=== PATIENT | female | born 1935 | race Caucasian/White ===

== ENCOUNTER 2017-09-23 11:48 | Outpatient (CLI) | payer MEDICARE, OTHER ==
--- NOTE | 2017-09-24 13:49 | Mammography Report ---
DATE OF SERVICE: 09/23/2017 DIGITAL BILATERAL SCREENING MAMMOGRAM: 09/23/2017 COMPARISON: Mammogram 12/04/2015. INDICATION: Screening mammography. TECHNIQUE: Bilateral MLO and CC breast views. FINDINGS: The breast parenchyma is extremely dense, which may limit the sensitivity of mammography. There is a scar marker over the right breast. There are bilateral scattered benign appearing calcifications. No dominant mass, architectural distortion, or concerning cluster of microcalcifications are seen. IMPRESSION: BIRADS CATEGORY 2-BENIGN FINDINGS. RECOMMENDATION: ANNUAL SCREENING MAMMOGRAM. STANDARD QUALIFYING STATEMENTS: 1. This examination was reviewed with the aid of Computer-Aided Detection (CAD) . 2. A negative or benign imaging report should not delay biopsy if clinically suspicious findings are present. Consider surgical consultation if warranted. More than 5% of cancers are not identified by imaging. 3. Dense breasts may obscure an underlying neoplasm. TD: 09/24/2017 14:48 BERNARDO
== END 2017-09-23 11:49 | disposition home or self-care (01) ==
LOC: DI.S 11:48
PROVIDERS: ATTEND Family Medicine
DX: Z12.31 Encounter for screening mammogram for malignant neoplasm of breast (principal)
CPT/HCPCS: 77067

== ENCOUNTER 2017-11-22 10:23 | Outpatient (CLI) | payer MEDICARE, OTHER ==
--- NOTE | 2017-11-22 16:33 | DEXA Report ---
DEXA SCAN: 11/22/2017 CLINICAL INDICATION: Postmenopausal. TECHNIQUE: Dual energy x-ray absorptiometry (DXA) was performed on a [employer] system. Regions measured are the AP spine, femoral neck, and, if needed, forearm. COMPARISON: None. In accordance with the International Society for Clinical Densitometry (ISCD) guidelines, data from previous exams may be reanalyzed using current recommendations and techniques. This is done to allow a more accurate basis for comparison with the current study. FINDINGS The data for the lumbar spine is as follows: REGION BMD (g/cm/cm) T-SCORE Z-SCORE L1 1.185 0.5 2.3 L2 1.031 -1.4 0.5 L3 1.007 -1.6 0.3 L4 1.168 -0.3 1.6 TOTAL 1.090 -0.7 1.1 NOTE: All evaluable vertebrae are used for classification. The data for the hip is as follows: REGION BMD (g/cm/cm) T-SCORE Z-SCORE Neck 0.851 -1.3 0.9 TOTAL 0.890 -0.9 1.2 NOTE: The femoral neck or total proximal femur, whichever is lowest, is used for classification. IMPRESSION: WHO CLASSIFICATION BASED ON THE INTERNATIONAL REFERENCE STANDARD IS OSTEOPENIA (REFERENCE LEFT FEMORAL NECK.) THE FRACTURE RISK IS INCREASED. RECOMMENDATION: Patients with diagnosis of osteoporosis or osteopenia should have regular bone mineral density assessment. For those eligible for Medicare, routine testing is allowed once every 2 years. Testing frequency can be increased for patients who have rapidly progressing disease or for those who are receiving medical therapy to restore bone mass. COMMENT: World Health Organization (WHO) definitions for osteoporosis and osteopenia: NORMAL BMD: T-score at 1.0 or higher, fracture risk is low. OSTEOPENIA BMD: T-score between 1.0 and -2.5, fracture risk is increased. OSTEOPOROSIS BMD: T-score at 2.5 or lower, fracture risk high. National Osteoporosis Foundation recommends: 1. Obtain adequate dietary calcium (at least 1200 mg per day) and vitamin D (400 -800 international units per day). 2. Participate, as appropriate, in regular weightbearing and muscle- strengthening exercise. 3. Avoid tobacco use and reduce alcohol and caffeine intake. 4. For more detailed information see the website at www.NOF.org. TD: 11/22/2017 12:48 MTDJesus
== END 2017-11-22 10:24 | disposition home or self-care (01) ==
LOC: DI 10:23
PROVIDERS: ATTEND Family Medicine
DX: M85.88 Other specified disorders of bone density and structure, other site (principal)
CPT/HCPCS: 77080

== ENCOUNTER 2018-11-06 08:38 | Emergency (ER) | payer MEDICARE, OTHER ==
[2018-11-06 08:48] VITALS: BP 127/92
[2018-11-06] MEDS ORDERED: DEXAMETHASONE 10 MG/ML VIAL PO STA (09:12)
[2018-11-06] MEDS ORDERED: diphenhydrAMINE 25 MG CAPSULE PO STA (09:13)
--- NOTE | 2018-11-06 09:17 | ED Physician Documentation ---
PD HPI SKIN - Stated complaint Stated Complaint: ALLERGIC REACTION/SENT BY DR - Chief complaint Chief Complaint: Wound - History obtained from History obtained from: Patient - History of Present Illness Timing - onset: How many days ago (4) Timing - duration: Days (4) Timing - details: Gradual onset, Still present Location: [place]wide Quality / character: Itchy, Raised, Swelling Improved by: Other (voltaran gel) Associated symptoms: Facial swelling. No: Fever, Myalgias, Joint pain, Headache, Dyspnea, Abd pain, N/V/D, Urinary sx Contributing factors: Exposed to medication (took macrobid one week prior to onset of symptoms) Similar symptoms before: Has not had sx before Recently seen: Clinic - Additional information Additional information: 83-year-old female has developed urticaria and has gone in to see her primary care physician. She has been placed on prednisone. She has been given a dose of 20 mg twice per day for 3 days and she has finished the third day and her urticaria is unchanged. She is very uncomfortable with this with the amount of itching and she is begging for relief. She did have a urinary tract infection and she took Macrobid for 5 days prior to the onset of her symptoms. She believes this may have been 1 week ago that she finished the medication. She has not taken other medications or eaten newer foods or had any other new or different antigen in her life. Review of Systems Constitutional: denies: Fever, Chills, Myalgias Eyes: denies: Decreased vision Ears: denies: Ear pain Nose: denies: Rhinorrhea / runny nose, Congestion Throat: denies: Sore throat Cardiac: denies: Chest pain / pressure, Palpitations Respiratory: denies: Dyspnea, Cough GI: denies: Abdominal Pain, Nausea, Vomiting : denies: Dysuria, Frequency Skin: reports: Rash Musculoskeletal: denies: Neck pain, Back pain, Extremity pain Neurologic: denies: Generalized weakness, Focal weakness, Numbness PD PAST MEDICAL HISTORY - Past Medical History Cardiovascular: Hypertension, High cholesterol, Atrial fibrillation, Valve disorder, Other - Past Surgical History Past Surgical History: Yes General: Cholecystectomy, Appendectomy, Hiatal hernia repair Cardiovascular: Valve replacement HEENT: Tonsil/Adenoidectomy - Present Medications Home Medications: Ambulatory Orders Medication Instructions Recorded Confirmed Digoxin 250 mcg PO DAILY 11/21/14 12/24/15 Diltiazem HCl [Dilt-Xr] 180 mg PO DAILY 11/21/14 12/24/15 Docusate Sodium 100Mg Capsule 100 mg PO DAILY #10 capsule 11/21/14 12/24/15 [Colace] Enalapril Maleate 5 mg PO DAILY 11/21/14 12/24/15 Lovastatin [Altoprev] 20 mg PO DAILY 11/21/14 12/24/15 D-Mannose 1 gm PO DAILY 12/24/15 12/24/15 Omeprazole 40 mg PO DAILY 12/24/15 12/24/15 metFORMIN [Glucophage] 250 mg PO BID 12/24/15 12/24/15 predniSONE [Deltasone] 10 mg PO ONCE #26 tablet 11/06/18 - Allergies Allergies/Adverse Reactions: Allergies Allergy/AdvReac Type Severity Reaction Status Date / Time No Known Drug Allergies Allergy Verified 11/06/18 08:48 - Social History Does the pt smoke?: No Smoking Status: Never smoker Does the pt drink ETOH?: Yes Does the pt have substance abuse?: No - Immunizations Immunizations are current?: Yes - POLST Patient has POLST: Yes PD ED PE NORMAL - Vitals Vital signs reviewed: Yes (tachy and hypertensive ) - General General: Alert and oriented X 3, No acute distress, Well developed/nourished - HEENT HEENT: Atraumatic, PERRL, EOMI, Ears normal, Pharynx benign, Other (dry mucous membranes) - Neck Neck: Supple, no meningeal sign, No bony TTP - Cardiac Cardiac: RRR, No murmur - Respiratory Respiratory: No respiratory distress, Clear bilaterally - Abdomen Abdomen: Soft, Non tender - Back Back: No CVA TTP, No spinal TTP - Derm Derm: Normal color, Warm and dry, Other (There are urticaria over the anterior thighs, trunk, arms and to a lessor extent the face. 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 She has had no significant relief with 20 mg of prednisone twice daily. I suspect her dose is inadequate to induce remission and today we have administered 10 mg of dexamethasone and we will put her on a taper that starts with 60 mg daily as a single dose. She is also given Benadryl 25 mg orally and I have instructed her to take this every 6 hours for the next 2 days. Departure - Departure Disposition: 01 Home, Self Care Clinical Impression: Urticaria Condition: Stable Instructions: ED Urticaria Follow-Up: Gigi Singh MD [Primary Care Provider] - Prescriptions: predniSONE [Deltasone] 10 mg PO ONCE #26 tablet Comments: Today it appears you have hives that have not responded to a low-dose of prednisone. We have given you a dose of dexamethasone 10 mg here in the emergency department and he will not need to start the prednisone until tomorrow. My recommendation is that you take Benadryl 25-50 mg every 6 hours for the next 2 days to help control your symptoms. The expectation is that your hives will malathi over the next 24-48 hours.
== END 2018-11-06 09:30 | disposition home or self-care (01) ==
LOC: ED 08:38
DX: L50.9 Urticaria, unspecified (principal); I10 Essential (primary) hypertension; Z87.440 Personal history of urinary (tract) infections; Z95.2 Presence of prosthetic heart valve
CPT/HCPCS: 99283; A9270

== ENCOUNTER 2019-08-11 14:26 | Outpatient (CLI) | payer MEDICARE, OTHER ==
--- NOTE | 2019-08-12 22:28 | XRAY Report ---
Reason: COUGH Procedure Date: 08/11/2019 Accession Number: [id number] / [id number] Procedure: XRS - Chest 2 View X-Ray CPT Code: 39554 Final Report FULL RESULT: EXAM: CHEST RADIOGRAPHY EXAM DATE: 08/11/2019 02:44 PM. CLINICAL HISTORY: Cough. COMPARISON: 11/21/2014 6:10 AM. TECHNIQUE: 2 views. FINDINGS: Lungs/Pleura: No overt edema. No focal pneumonia. No gross pneumothorax or large effusion. Mediastinum: Heart size borderline but stable. No mediastinal shift. Other: Previous median sternotomy. 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 IMPRESSION: No acute process seen in the chest. RADIA
== END 2019-08-11 14:27 | disposition home or self-care (01) ==
LOC: DI.S 14:26
PROVIDERS: ATTEND Nurse Practitioner Family
DX: R05 Cough (principal)
CPT/HCPCS: 71046

== ENCOUNTER 2022-02-06 13:19 | Outpatient (CLI) | payer MEDICARE, OTHER ==
[2022-02-06 20:26] LABS: CALCIUM 10.3 mg/dL (8.5-10.3); CREATININE 0.8 mg/dL (0.4-1.0); POTASSIUM 4.4 mmol/L (3.5-5.0)
== END 2022-02-06 13:20 | disposition home or self-care (01) ==
LOC: LAB.S 13:19
PROVIDERS: ATTEND Internal Medicine Interventional Cardiology
DX: I10 Essential (primary) hypertension (principal)
CPT/HCPCS: 36415; 80048

== ENCOUNTER 2022-12-18 10:57 | Outpatient (CLI) | payer MEDICARE, OTHER ==
[2022-12-18 14:31] LABS: BASOPHILS # (AUTO) 0.1 10^3/uL (0.0-0.1); BASOPHILS % (AUTO) 0.7 %; EOSINOPHILS # (AUTO) 0.3 10^3/uL (0.0-0.7); EOSINOPHILS % (AUTO) 4.4 %; HCT - HEMATOCRIT 39.3 % (37.0-47.0); HGB - HEMOGLOBIN 12.8 g/dL (12.0-16.0); LYMPHOCYTES # (AUTO) 1.7 10^3/uL (1.5-3.5); LYMPHOCYTES % (AUTO) 24.6 %; MEAN CORPUSCULAR HEMOGLOBIN 31.1 pg (27.0-31.0); MEAN CORPUSCULAR HGB CONC 32.6 g/dL (32.0-36.0); MEAN CORPUSCULAR VOLUME 95.6 fL (81.0-99.0); MEAN PLATELET VOLUME 10.2 fL (7.9-10.8); MONOCYTES % (AUTO) 14.3 %; NEUTROPHILS # (AUTO) 3.9 10^3/uL (1.5-6.6); NEUTROPHILS % (AUTO) 55.6 %; PLT - PLATELET COUNT 295 10^3/uL (130-450); RED BLOOD COUNT 4.11 10^6/uL (4.20-5.40); RED CELL DISTRIBUTION WIDTH 13.4 % (12.0-15.0); WHITE BLOOD COUNT 7.1 x10^3/uL (4.8-10.8)
[2022-12-18 14:49] LABS: ALBUMIN 4.5 g/dL (3.2-5.5); ALBUMIN/GLOBULIN RATIO 1.6 (1.0-2.2); ALKALINE PHOSPHATASE 40 IU/L (42-121); ALT ALANINE AMINOTRANSFERASE 19 IU/L (10-60); AST ASPARTATE AMINOTRANSFERASE 23 IU/L (10-42); BILIRUBIN,TOTAL 0.9 mg/dL (0.2-1.0); BUN - BLOOD UREA NITROGEN 40 mg/dL (6-20); CALCIUM 9.9 mg/dL (8.5-10.3); CARBON DIOXIDE - CO2 25 mmol/L (21-32); CHLORIDE 105 mmol/L (101-111); CHOL/HDL RATIO 4.1 (<4.4); CHOLESTEROL 189 mg/dL; GFR - MDRD 52 (>89); GLUCOSE 120 mg/dL (70-100); HDL CHOLESTEROL 46 mg/dL; LDL CHOLESTEROL,CALCULATED 85 mg/dL; LDL/HDL RATIO 1.8 (<4.4); POTASSIUM 4.7 mmol/L (3.5-5.0); SODIUM 137 mmol/L (135-145); TOTAL PROTEIN 7.4 g/dL (6.7-8.2); TRIGLYCERIDES 292 mg/dL; VLDL CHOLESTEROL 58 mg/dL
== END 2022-12-18 10:58 | disposition home or self-care (01) ==
LOC: LAB.S 10:57
PROVIDERS: ATTEND Internal Medicine Interventional Cardiology
DX: I34.9 Nonrheumatic mitral valve disorder, unspecified (principal); I48.91 Unspecified atrial fibrillation; R06.02 Shortness of breath; R07.9 Chest pain, unspecified; R53.83 Other fatigue
CPT/HCPCS: 36415; 80053; 80061; 83721; 84443; 85025